=== PATIENT | female | born 1990 | race Two or more races ===

== ENCOUNTER 2019-09-24 09:57 | Emergency (ER) | payer OTHER ==
[~2019-09-24] VITALS: Ht 157.5 cm; Wt 72.0 kg
[2019-09-24 10:03] VITALS: BP 123/90
== END 2019-09-24 10:55 | disposition home or self-care (01) ==
LOC: ER 09:57
DX: J06.9 Acute upper respiratory infection, unspecified (principal); M79.10 Myalgia, unspecified site
CPT/HCPCS: 99281